=== PATIENT | female | born 1980 | race Asian ===

== ENCOUNTER 2021-12-30 17:23 | Emergency (ER) | payer OTHER ==
[2021-12-30] MEDS ORDERED: ACETAMINOPHEN 1000 MG/100 ML BAG IVPB ONE (17:26)
[2021-12-30 17:28] VITALS: BMI 24.7
[2021-12-30] MEDS ORDERED: ACETAMINOPHEN INJECTION 100 ML IVPB ONE (17:36)
[2021-12-30 18:06] LABS: HEMATOCRIT 35.1 % (32.4-45.2); HEMOGLOBIN 12.4 G/dL (10.7-15.3); MCHC 35.4 g/dl (32.0-36.0); MEAN CELL VOLUME 90.2 fl (80-96); MEAN PLT VOLUME 8.6 fl (7.5-11.1); PLATELET COUNT 288.2 10^3/uL (134-434); RBC 3.89 10^6/uL (3.60-5.2); RDW 14.6 % (11.6-15.6); WHITE BLOOD COUNT 11.3 10^3/uL (4.0-10.8)
[2021-12-30 18:06] LABS: ALBUMIN 3.2 g/dl (3.4-5.0); BILIRUBIN,TOTAL 0.6 mg/dl (0.2-1); CALCIUM 8.7 mg/dl (8.5-10); CREATININE 0.5 mg/dl (0.55-1.3); TOT PROT 6.7 g/dl (6.4-8.2)
[2021-12-30 18:53] LABS: INR 0.9 (0.83-1.09); PROTHROMBIN TIME (PATIENT) 10.3 SEC (9.7-13.0)
[2021-12-30] MEDS ORDERED: ONDANSETRON 4 MG/2 ML VIAL ONE (18:54)
[2021-12-30] MEDS ORDERED: ONDANSETRON 4 MG/2 ML VIAL IVPB ONE (18:54)
[2021-12-30 18:55] LABS: ACTIVATED PTT 30.9 SECONDS (25.2-36.5)
[2021-12-30] MEDS ORDERED: KCL 10 MEQ IVPB 10 MEQ/100 ML INFUS.BAG IVPB SCH (19:00)
[2021-12-30] MEDS ORDERED: KCL 10 MEQ IVPB 10 MEQ/100 ML INFUS.BAG IVPB ONE (19:01)
[2021-12-30 19:19] LABS: PLATELET ESTIMATE ADEQUATE
[2021-12-30] MEDS ORDERED: SODIUM CHLORIDE 1,000 ML IV ONE (19:58)
[2021-12-30] MEDS ORDERED: morphine CARPU-JECT 2 MG/1 ML DISP.SYRIN IVPUSH ONE (20:43)
[2021-12-30] MEDS ORDERED: morphine SULFATE 4 MG/ML VIAL ONE (20:44)
[2021-12-30 21:00] VITALS: BP 113/60; PULSE 79; RESP 18; TEMP 98
== END 2021-12-30 21:23 | disposition short-term general hospital (02) ==
LOC: FER 17:23
PROC: 3E033GC Introduction of Other Therapeutic Substance into Peripheral Vein, Percutaneous Approach (ICD-10-PCS; principal; 2021-12-30)
DX: O26.892 Other specified pregnancy related conditions, second trimester (principal); R10.31 Right lower quadrant pain; Z3A.15 15 weeks gestation of pregnancy
CPT/HCPCS: 36415; 76817-TC; 80053; 84702; 85027; 85610; 85730; 86850; 86900; 86901; 99285-25; C9803-CS; U0003; U0005